=== PATIENT | male | born 1975 | race Caucasian/White ===

== ENCOUNTER 2019-05-07 18:59 | Outpatient (REF) | payer MEDICAID, SELFPAY ==
[2019-05-07 19:30] LABS: Calculated LDL 113 mg/dL; Cholesterol 186 mg/dL (<200); HDL Cholesterol 57 mg/dL (40-60); Triglyceride 84 mg/dL (<150)
[2019-05-07 20:03] LABS: Hemoglobin A1C 5.7 % (4.5-6.2)
== END 2019-05-07 19:19 ==
LOC: NCHCN 18:59
PROVIDERS: PCP Family Medicine; Visit Provider Family Medicine
DX: Z13.1 Encounter for screening for diabetes mellitus (principal); Z13.220 Encounter for screening for lipoid disorders; Z00.00 Encounter for general adult medical examination without abnormal findings
CPT/HCPCS: 80061; 83036

== ENCOUNTER 2020-04-05 18:59 | Outpatient (REF) | payer OTHER, SELFPAY ==
[2020-04-07 16:09] LABS: HSV 1 DNA Result Negative (Negative); HSV 2 DNA Result Negative (Negative); Varicella Zoster DNA Result Negative (Negative)
== END 2020-04-05 19:19 ==
LOC: NCHCN 18:59
PROVIDERS: PCP Family Medicine; Visit Provider Physician Assistant
DX: L98.8 Other specified disorders of the skin and subcutaneous tissue (principal); Z11.8 Encounter for screening for other infectious and parasitic diseases
CPT/HCPCS: 87529; 87798

== ENCOUNTER 2020-05-09 09:28 | Outpatient (REF) | payer OTHER, SELFPAY ==
[2020-05-09 20:56] LABS: Hemoglobin A1C 5.3 % (<5.7)
== END 2020-05-09 09:48 ==
LOC: NCHCN 09:28
PROVIDERS: PCP Family Medicine; Visit Provider Family Medicine
DX: R73.03 Prediabetes (principal)
CPT/HCPCS: 83036

== ENCOUNTER 2024-05-29 15:17 | Outpatient (CLI) | payer BC, SELFPAY ==
--- NOTE | 2024-05-29 15:36 | DI.RAD_ITS ---
Exam(s) XR CERVICAL SPINE COMP 4-5V EXAM: XR CERVICAL SPINE COMP 4-5V CLINICAL HISTORY: Cervicalgia, M54.2. TECHNIQUE: 2D digital imaging was performed. COMPARISON: No exams were available for comparison FINDINGS: Five views. No evidence of fracture, listhesis, nor offset of the spinal laminar line. There is mild disc space narrowing and anterior osseous lipping at C6-7 level. On the oblique views there tiny Luschka joint osteophytes at this level on the left side. All other disc spaces appear unremarkable. Bone density normal. No osseous lesions. No cervical ribs. IMPRESSION: Degenerative disc disease at C6-7 level DATA REPOSITORY: RADIATION DOSE DELIVERED:
--- OUTSIDE RECORDS SUMMARY | 2024-05-29 15:37 | XMS_ITS | Referral Summary ---
Author Organization [facility] Address [address] [place] [id number] Care Team Providers Care Electronic Tech Name Role Phone Faiza Bullard NP Primary Care Provider [phone] Social History Tobacco Use Types Packs/Day Years Used Date Smoking Tobacco: Never Assessed Sex and Gender Information Value Date Recorded Sex Assigned at Not on file Legal Sex Male 17:58 EST Gender Identity Not on file Sexual Orientation Not on file Plan of Treatment Not on file Care Teams Electronic Tech Relationship Specialty Start Date End Date Faiza Bullard NP [address] [place] [phone] PCP - General 01/07/12
--- OUTSIDE RECORDS SUMMARY | 2024-05-29 15:37 | XMS_ITS | Encounter Summary ---
Author Organization [facility] Address [address] [place] [address] Care Team Providers Care Dean Of Faculty Name Role Phone Faiza Bullard ALESSANDRA Primary Care Provider [phone] Encounter Details Date Type Department Care Team (Late st Contact Info) Description 04/06/2020 Lab Requisition [facility] Pathology & Laboratory Medicine - [facility] [address] [place] [address] Outr Resulting Lab, Provider Social History Tobacco Use Types Packs/Day Years Used Date Smoking Tobacco: Never Assessed Sex and Gender Information Value Date Recorded Sex Assigned at Not on file Legal Sex Male 17:58 EST Gender Identity Not on file Sexual Orientation Not on file documented as of this encounter Plan of Treatment Not on file documented as of this encounter Procedures Procedure Name Priority Date/Time Associated Diagnosis Comments VARICELLA ZOSTER VIRUS MOLECULAR DETECTION, PCR Routine 04/05/2020 16:30 EDT HSV (HERPES SIMPLEX VIRUS) MOLECULAR DETECTION, PCR Routine 04/05/2020 16:30 EDT documented in this encounter Results * VARICELLA ZOSTER VIRUS MOLECULAR DETECTION, PCR (04/05/2020 16:30 EDT) VARICELLA ZOSTER VIRUS MOLECULAR DETECTION, PCR Negative Negative 04/07/2020 16:00 EDT [facility] Comment:This test was maria esther medley and its performance characteristics determined by [facility]. It has not been cleared or approved by the US Food and Drug Administration. FDA does not require this test to go through premarket FDA review. This test is used for clinical purposes. It should not be regarded as investigational or research. This laboratory is certified under the Clinical Laboratory Improvement Amendments (CLIA) as qualified to perform high complexity clinical laboratory testing. Swab ENTIRE FACE / Unknown 04/05/2020 16:30 EDT 04/06/2020 19:19 EDT us Provider Outr Resulting Lab MICROBIOLOGY - GENER AL ORDERABLES Final Result Performing Organization Address City/[facility]/ZIP Co de Phone Number [facility] [address] [place] [address] * HERPES SIMPLEX VIRUS MOLECULAR DETECTION, PCR (04/05/2020 16:30 EDT) Herpes Simplex Virus Molecular Detection 1, PCR Negative Negative 04/07/2020 16:00 EDT [facility] Herpes Simplex Virus Molecular Detection 2, PCR Negative Negative 04/07/2020 16:00 EDT [facility] Swab ENTIRE FACE / Unknown 04/05/2020 16:30 EDT 04/06/2020 19:19 EDT us Provider Outr Resulting Lab MICROBIOLOGY - GENER AL ORDERABLES Final Result Performing Organization Address City/[facility] Co de Phone Number [facility] [address] [place] [address] documented in this encounter Visit Diagnoses Not on filedocumented in this encounter Care Teams Dean Of Faculty Relationship Specialty Start Date End Date Faiza Bullard NP [address] [place] [phone] PCP - General 01/07/12 documented as of this encounter
--- OUTSIDE RECORDS SUMMARY | 2024-05-29 15:37 | XMS_ITS | Continuity of Care Document ---
Author Organization [facility] Address [address] [place] [phone] Encounter [facility] NBR [id number] Date(s): 08/15/22 - 08/15/[address] [phone]- Encounter Diagnosis Encounter for other administrative examinations(Final) - Discharge Disposition: Home or Self Care Attending Physician: Zach Chan Admitting Physician: Zach Chan
--- OUTSIDE RECORDS SUMMARY | 2024-05-29 15:37 | XMS_ITS | Clinical Summary ---
Author Organization [facility] Address [address] [place] [address] Care Team Providers Care Ap Operator Name Role Phone Faiza Bullard NP Primary Care Provider [phone] Social History Tobacco Use Types Packs/Day Years Used Date Smoking Tobacco: Never Assessed Sex and Gender Information Value Date Recorded Sex Assigned at Not on file Legal Sex Male 17:58 EST Gender Identity Not on file Sexual Orientation Not on file Plan of Treatment Health Maintenance Due Date Last Done Comments Hepatitis C Screen 1975 Hepatitis B Vaccine (1 of 3 - 19+ 3-dose series) 10/26 COVID-19 Vaccine ( season) 2024 Care Teams Ap Operator Relationship Specialty Start Date End Date Faiza Bullard NP [address] [place] [phone] PCP - General 01/07/12
--- OUTSIDE RECORDS SUMMARY | 2024-05-29 15:37 | XMS_ITS | Encounter Summary ---
Author Organization [facility] Address [address] [place] [address] Care Team Providers Care Cardiac Exercise Physiologist Name Role Phone Faiza Bullard ALESSANDRA Primary Care Provider Encounter Details Date Type Department Care Team (Late st Contact Info) Description 01/03/[address] [facility] - [facility] ([facility]) [address] [place], [place] [phone] James Saavedra MD [address] [place] [phone] Social History Tobacco Use Types Packs/Day Years [...] Procedure Name Priority Date/Time Associated Diagnosis Comments SURGICAL PATHOLOGY Routine 01/03/2012 0:00 EDT documented in this encounter Results * SURGICAL PATHOLOGY (01/03/2012 0:00 EDT) Pathology Report: SURGICAL PATHOLOGY REPORT Reports generated via electronic interface contain original data; however they are lacking the format of the original report. Caution should be taken when reading/interpreti ng unformatted reports. Name: ? BLANCA CADE ? Accession #: ? [id number] ? : ? 1975 (Age: 36) ??M ? Collect Date: ? 01/03/2012 ? Location: ? [facility] ? Receive Date: ? 01/04/2012 ? Provider: JAMES SAAVEDRA MD Copy to: ? Final Pathologic Diagnosis: A. ?Vas deferens, right, vasectomy: 1. ?No specific pathologic features. 2. ? Full cross section demonstrated. B. ?Vas deferens, left, vasectomy: 1. ?No specific pathologic features. 2. ? Full cross section demonstrated. Document reviewed and electronically signed by: MATEO DARNELL MD Report ??Date: 01/08/2012 14:20 By the signature above, the attending physician certifies that he/she has personally conducted a gross and/or microscopic examination of the described specimens and rendered or confirmed the above diagnosis. Specimen(s) Received: A. ?R vas deferens B. ? L vas deferens Clinical History: ? Not listed Gross Description: ? Received in formalin labelled Cade, Blanca and R vas deferens is a 1.2 cm in length by 0.2 cm in diameter firm white focally parkinson-red cylinder of tissue with a pinpoint lumen. ??Two wine sales representative cross sections are submitted as (A). Received in formalin labelled Cade, Blanca and L vas deferens is a 1.4 cm in length by 0.2 cm in diameter firm white focally parkinson-red cylinder of tissue with a pinpoint lumen. ??Two wine sales representative cross sections are submitted as (B). (Renee Mcintyre)/[facility] End of Report [facility] 01/03/2012 01/04/2012 9:2 7 EDT us James Saavedra MD PATHOLOGY ORDERABLES Final Resul t [facility] [address] [place] [address] documented in this encounter Visit Diagnoses Not on filedocumented in this encounter Care Teams Cardiac Exercise Physiologist Relationship Specialty Start Date End Date Faiza Bullard NP [address] [place] [phone] PCP - General 01/07/12 documented as of this encounter
== END 2024-05-29 15:37 ==
LOC: DI 15:22
PROVIDERS: PCP Family Medicine; Visit Provider Physician Assistant Medical
DX: M50.023 Cervical disc disorder at C6-C7 level with myelopathy (principal)
CPT/HCPCS: 72050